=== PATIENT | male | born 2000 | race Two or more races ===

== ENCOUNTER 2021-10-13 21:18 | Emergency (ER) | payer OTHER ==
[~2021-10-13] VITALS: Ht 170.2 cm; Wt 70.3 kg
[2021-10-14] MEDS ORDERED: LEVSIN0.125 MG PO (01:19)
[2021-10-14] MEDS ORDERED: PEPCID20 MG PO (01:19)
[2021-10-14] MEDS ORDERED: INTESTINEX680 M1 PO (01:19)
== END 2021-10-14 02:39 | disposition home or self-care (01) ==
LOC: EMR PED 21:18 → ER 21:18 → EMR PED 21:58
DX: K52.89 Other specified noninfective gastroenteritis and colitis (principal); R50.9 Fever, unspecified

== ENCOUNTER → 2023-03-21 | Emergency (ER) | payer OTHER ==
[~2023-03-21] VITALS: Ht 170.2 cm; Wt 69.4 kg
[~2023-03-21] MED LIST: INTESTINEX680 M1 PO; LEVSIN0.125 MG PO; PEPCID20 MG PO
== END | disposition left against medical advice (07) ==
LOC: ER 00:24
DX: Z53.21 Procedure and treatment not carried out due to patient leaving prior to being seen by health care provider (principal)

== ENCOUNTER 2023-08-05 13:39 | Emergency (ER) | payer OTHER ==
[~2023-08-05] VITALS: Ht 170.2 cm; Wt 70.3 kg
[2023-08-05 18:45] LABS: HEMATOCRIT 44.8 % (39.0-48.0); HEMOGLOBIN 15.1 g/dL (13-16.00); MEAN CELL VOLUME 86.5 fL (80.0-100.00); MEAN CORPUSCULAR HEMOGLOBIN 29.1 pg (27.00-32.0); MEAN CORPUSCULAR HGB CONC 33.6 g/dl (32.0-36.0); PLATELET COUNT 307 K/uL (150-450); RED BLOOD COUNT 5.18 M/uL (4.00-6.00); RED CELL DISTRIBUTION WIDTH 13.1 % (11.5-14.5)
[2023-08-05] MEDS ORDERED: FLONASE16 GM NASAL (20:17)
[2023-08-05] MEDS ORDERED: NASAL MIST126 ML NASAL (20:17)
== END 2023-08-05 20:26 | disposition home or self-care (01) ==
LOC: ER 13:40
PROVIDERS: Nurse Practitioner Family
DX: J32.9 Chronic sinusitis, unspecified (principal); R09.81 Nasal congestion; J45.909 Unspecified asthma, uncomplicated; Q36.9 Cleft lip, unilateral; Z88.0 Allergy status to penicillin; Z20.822 Contact with and (suspected) exposure to COVID-19